=== PATIENT | female | born 1985 | race Hispanic/Latino ===

== ENCOUNTER 2024-05-05 17:46 | Emergency (ER) | payer SELFPAY ==
[2024-05-05] MEDS ORDERED: ONDANSETRON 4 MG/2 ML VIAL ONE (18:32)
[2024-05-05] MEDS ORDERED: FAMOTIDINE 20 MG/2 ML VIAL IV ONE (18:33)
[2024-05-05] MEDS ORDERED: NA CHLORIDE 0.9% 1,000 ML ONE (18:33)
[2024-05-05 18:35] LABS: Absolute Basophils 0.1 K/uL (0-0.5); Absolute Eosinophils 0.1 K/uL (0-0.5); Absolute Lymphocytes (CBC) 2.9 K/uL (0.7-4.9); Absolute Monocytes 0.4 K/uL (0.1-1.3); Absolute Neutrophil 7.7 K/uL (1.8-8.0); Basophils % 0.7 % (0-1.3); Eosinophils % 0.7 % (0-4.4); Hematocrit 36.6 % (36.0-45.0); Hemoglobin 12.4 g/dL (12.0-15.0); Lymphocytes % 25.8 % (15.3-44.8); MCH 29.2 pg (27.0-35.0); MCV 85.8 fL (80-100); MPV 8.3 fL (7.6-11.3); Monocytes % 3.5 % (3.3-12.3); Neutrophils % 69.3 % (41.7-73.7); Platelets 284 thou/uL (152-406); RBC Red Blood Cell Count 4.26 M/uL (3.86-4.86); Red Cell Distribution Width 13.1 % (12.1-15.2)
[2024-05-05 18:52] LABS: Albumin 3.7 g/dL (3.4-5.0); Albumin/Globulin Ratio 0.9 (1.1-1.8); Anion Gap 11.4 mEq/L (5.0-15.0); Bilirubin Total 0.3 mg/dL (0.2-1.0); Globulin 4.2 g/dL (2.3-3.5); Potassium 3.4 mEq/L (3.5-5.1); Protein, Total 7.9 g/dL (6.4-8.2)
[2024-05-05 19:00] LABS: Specific Gravity 1.005 (1.005-1.030)
[2024-05-05 19:08] LABS: SARS-CoV-2 Antigen CONTROL BLUE LINE VIS/BG OK; SARS-CoV-2 Antigen Rapid Res Negative (Negative)
--- NOTE | 2024-05-05 19:54 | RAD REPORT ---
EXAMINATION: CT ABDOMEN AND PELVIS WITH CONTRAST CLINICAL INDICATION: n/v;Abd pain TECHNIQUE: CT abdomen and pelvis was performed, after the administration of IV contrast, [facility]. Axial, sagittal and coronal reconstructions were obtained. One or more of the following dose reduction techniques were used: Automated exposure control, adjustment of the mA and k V according to patient size, and iterative reconstruction. Unless otherwise specified, incidental findings do not require dedicated imaging follow-up. COMPARISON: No prior exam. FINDINGS: LOWER CHEST: The visualized lung bases are clear. Small hiatal hernia. LIVER: Normal in size and contour. Small low-density lesion right hepatic lobe measuring 4 mm likely benign.. Grossly unremarkable gallbladder. SPLEEN: Normal size. No focal lesion. PANCREAS: No mass, ductal dilation, or herbert-pancreatic fluid. ADRENALS: Normal; no mass. KIDNEYS: Normal size and contour. No hydronephrosis. GASTROINTESTINAL TRACT: No evidence of free air, significant intra-abdominal free fluid, bowel obstru ction or abscess. APPENDIX: Normal appendix. LYMPH NODES: No lymphadenopathy. MUSCULOSKELETAL: No acute or suspicious osseous abnormality. ADDITIONAL FINDINGS: Trace pelvic free fluid. IMPRESSION: No acute or concerning abnormalities seen in the abdomen or pelvis. Trace indeterminate pelvic free fluid, often physiologic in premenopausal females.
[2024-05-05 21:36] LABS: Sqamous Epithelial <5 /HPF (None Seen); Urine Bacteria None Seen /HPF (<20); Urine Culture Reflex Order NOT NEEDED; Urine Microscopic Reflex YN ORDER UMIC; Urine Mucus Slight /HPF (None Seen); Urine RBC <5 /HPF (None Seen); Urine WBC <5 /HPF (<5)
[2024-05-05 21:37] LABS: Specific Gravity > 1.030 (1.005-1.030); Urine Bilirubin Negative (Negative); Urine Clarity Clear (Clear); Urine Color Colorless (Yellow); Urine Glucose Negative (Negative); Urine Ketones 1+ (Negative)
[2024-05-05 21:38] LABS: Urine Blood Negative (Negative); Urine Nitrite Negative (Negative); Urine Protein Negative (Negative); Urine Urobilinogen Normal (Normal)
--- NOTE | 2024-05-05 21:55 | EDPHYS ---
Physician Documentation [facility] Name: Ana Cristina Ibarra Age: 38 yrs Sex: Female : 1985 Arrival Date: 05/05/2024 Time: 17:46 Bed 20 Private MD: ED Physician Pete Noland HPI: 05/06 00:19 This 38 yrs old Female presents to ER via Ambulatory with complaints of sb4 Vomiting, Heartburn, Headache. 00:31 nausea and vomiting x 2 hours. reports burning in the throat. no diarrhea. unsure if sb4 or not. denies any abdominal pain. does not think she ate anything bad. denies any sick contacts. denies URI symptoms. denies chest pain or sob. 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 - Infectious Disease History:: Denies. - Social history:: Smoking status: Patient denies any tobacco usage or history of. ROS: 05/06 00:31 Constitutional: Negative for fever, chills, and weight loss, sb4 Abdomen/GI: Positive for nausea and vomiting, All other systems are negative, Exam: 00:31 Head/Face: Normocephalic, atraumatic. Eyes: Extra-ocular motions intact. Periorbital sb4 areas with no swelling, redness, or edema. ENT: Mucous membranes moist. Cardiovascular: Regular rate and rhythm with a normal S1 and S2. Respiratory: No increased work of breathing, no retractions or nasal flaring. Abdomen/GI: Soft, non-tender, no distension. Skin: Warm, dry with normal turgor. Normal color with no rashes, no lesions, and no evidence of cellulitis. MS/ Extremity: Pulses equal, no cyanosis. Neurovascular intact. Full, normal range of motion. 00:31 Constitutional: The patient appears alert, awake, uncomfortable, Vital Signs: 05/05 17:53 BP 126 / 65; Pulse 67; Resp 17; Temp 98.6; Pulse Ox 100% ; me1 19:00 BP 114 / 56; Pulse 79; Resp 16; Pulse Ox 100% ; me1 20:00 BP 114 / 57; Pulse 73; Resp 15; Pulse Ox 100% ; me1 21:00 BP 108 / 51; Pulse 72; Resp 15; Pulse Ox 99% ; me1 22:00 BP 108 / 55; Pulse 68; Resp 16; Temp 98.4; Pulse Ox 99% ; me1 MDM: 17:53 Medical Screening Exam initiated sb4 05/06 00:31 Data reviewed: vital signs, nurses notes, lab test result(s), radiologic studies, and sb4 as a result, I will discharge patient. Counseling: I had a detailed discussion with the patient and/or guardian regarding the historical points, exam findings, and any diagnostic results supporting the discharge/admit diagnosis, lab results, radiology results, the need for outpatient follow up, for definitive care, to return to the emergency department if symptoms worsen or persist or if there are any questions or concerns that arise at home. 05/05 18:16 Order name: CBC with Diff; Complete Time: 18:36 sb4 05/05 18:16 Order name: CMP; Complete Time: 18:52 sb4 05/05 18:16 Order name: Lipase; Complete Time: 18:52 sb4 05/05 18:16 Order name: Test, Urine; Complete Time: 19:01 sb4 05/05 18:16 Order name: Urinalysis w/ reflexes; Complete Time: 21:39 sb4 05/05 18:16 Order name: SARS RAPID; Complete Time: 19:15 sb4 05/05 18:16 Order name: Flu; Complete Time: 19:16 sb4 05/05 19:17 Order name: CT Abd/Pelvis - IV Contrast Only; Complete Time: 19:54 sb4 05/05 18:16 Order name: IV Saline Lock; Complete Time: 18:33 sb4 05/05 18:16 Order name: Labs collected and sent; Complete Time: 18:33 sb4 05/05 20:01 Order name: PO challenge; Complete Time: 20:11 sb4 Administered Medications: 05/05 18:55 Drug: Famotidine IVP 20 mg IVP once; dilute with 10 mL 0.9% NaCl; give over 2 minutes me1 Route: IVP; Site: right antecubital; 22:10 Follow up: Response: No adverse reaction me1 18:55 Drug: Ondansetron IVP 4 mg IVP once; over 2 minutes Route: IVP; Site: right antecubital;me1 22:10 Follow up: Response: No adverse reaction; Nausea is decreased me1 18:55 Drug: NS 0.9% IV 1000 ml IV at 1 bolus Per protocol; to be given as a bolus over 60 me1 minutes Route: IV; Rate: 1 bolus; Site: right antecubital; 22:10 Follow up: Response: No adverse reaction; IV Status: Completed infusion; IV Intake: me1 1000ml Disposition Summary: 05/05/24 21:54 Discharge Ordered Notes: Location: Home sb4 Problem: new sb4 Symptoms: have improved sb4 Condition: Stable sb4 Diagnosis - Nausea with vomiting, unspecified sb4 Followup: sb4 - With: Private Physician - When: As needed - Reason: Recheck today's complaints, Re-evaluation by your physician Discharge Instructions: - Discharge Summary Sheet sb4 - Nausea and Vomiting, Adult sb4 - Viral Gastroenteritis, Adult, [id number] sb4 Forms: - Patient Portal Instructions sb4 - Leadership Thank You Letter sb4 Prescriptions: - Pepcid 20 mg Oral Tablet - take 1 tablet ORAL route every 12 hours for 5 days; 10 tablet; Refills: 0, sb4 Product Selection Permitted - dicyclomine 10 mg Oral capsule - take 1 capsule ORAL route 3 times per day; 12 capsule; Refills: 0, Product sb4 Selection Permitted - ondansetron 8 mg Oral Tablet,disintegrating - take 1 tablet ORAL route every 8 hours; 10 tablet; Refills: 0, Product sb4 Selection Permitted Addendum: 05/10/2024 15:31 Co-signature as Attending Physician, Pete Noland MD I agree with the assessment and c weston plan of care. Signatures: Dispatcher [employer] Pete Salazar MD MD cha Brown, Sophia PATawanaC PATawanaC sb4 Renetta Arechiga, RN RN me1 Corrections: (The following items were deleted from the chart) 05/05 22:05 22:04 PSHx: Unable to Obtain; me1 me1
--- NOTE | 2024-05-05 21:55 | ER ---
Nurse's Notes [facility] Name: Ana Cristina Ibarra Age: 38 yrs Sex: Female : 1985 Arrival Date: 05/05/2024 Time: 17:46 Bed 20 Private MD: Diagnosis: Nausea with vomiting, unspecified Presentation: 05/05 17:53 Chief complaint: Patient states: with use of coat baster: n/v that started at 4 pm and me1 now patient has severe burning from her stomach up her esophagus. c/o headache as well. Coronavirus screen: Vaccine status: Patient reports being unvaccinated. Ebola Screen: No symptoms or risks identified at this time. Initial Sepsis Screen: Does the patient meet any 2 criteria? No. Patient's initial sepsis screen is negative. Does the patient have a suspected source of infection? No. Patient's initial sepsis screen is negative. Risk Assessment: Do you want to hurt yourself or someone else? Patient reports no desire to harm self or others. Onset of symptoms was May 05, 2024 at 16:00. 17:53 Method Of Arrival: Ambulatory la1 17:53 Acuity: [place] 3 me1 Triage Assessment: 17:53 General: Appears uncomfortable, ill, well groomed, well developed, well nourished, me1 Behavior is cooperative, appropriate for age, anxious, Reports n/v since 4 pm with severe heartburn and headache. Pain: Complains of pain in mid-sternal area Pain radiates to neck Pain currently is 10 out of 10 on a pain scale. Quality of pain is described as burning, Pain began suddenly, Is continuous. 17:53 EENT: No signs and/or symptoms were reported regarding the EENT system. Neuro: Level of me1 Consciousness is awake, alert, obeys commands, Oriented to person, place, time, situation, Appropriate for age Reports headache. Cardiovascular: Patient's skin is warm and dry. Respiratory: Airway is patent Trachea midline Respiratory effort is even, unlabored, Respiratory pattern is regular, symmetrical. GI: Reports indigestion, nausea, vomiting, since 4 pm. : No signs and/or symptoms were reported regarding the genitourinary system. Derm: Skin is intact, is healthy with good turgor, Skin is pink, warm \T\ dry. Musculoskeletal: No signs and/or symptoms reported regarding the musculoskeletal system. 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 - Infectious Disease History:: Denies. - Social history:: Smoking status: Patient denies any tobacco usage or history of. Screenin:53 [facility] ED Fall Risk Assessment (Adult) History of falling in the last 3 months, me1 including since admission No falls in past 3 months (0 pts) Confusion or Disorientation No (0 pts) Intoxicated or Sedated No (0 pts) Impaired Gait No (0 pts) Mobility Assist Device Used No (0 pt) Altered Elimination No (0 pt) Score/Fall Risk Level 0 - 2 = Low Risk Maintained a safe environment, Provided non-skid footwear, Hourly rounding (assess needs \T\ fall precautionary measures) done. Abuse screen: Denies threats or abuse. Nutritional screening: No deficits noted. Tuberculosis screening: No symptoms or risk factors identified. Assessment: 17:53 General: See triage assessment.. GI: Reports indigestion, nausea, vomiting. me1 Vital Signs: 17:53 BP 126 / 65; Pulse 67; Resp 17; Temp 98.6; Pulse Ox 100% ; me1 19:00 BP 114 / 56; Pulse 79; Resp 16; Pulse Ox 100% ; me1 20:00 BP 114 / 57; Pulse 73; Resp 15; Pulse Ox 100% ; me1 21:00 BP 108 / 51; Pulse 72; Resp 15; Pulse Ox 99% ; me1 22:00 BP 108 / 55; Pulse 68; Resp 16; Temp 98.4; Pulse Ox 99% ; me1 ED Course: 17:47 Patient arrived in ED. im 17:53 Lisseth Barbour PA-C is PHCP. sb4 17:53 Pete Noland MD is Attending Physician. sb4 17:53 No provider procedures requiring assistance completed. me1 17:53 Arm band placed on Patient placed in an exam room. me1 17:53 Patient has correct armband on for positive identification. Bed in low position. Call me1 light in reach. Side rails up X2. Provided Education on: POC. Verbalized understanding.. Client placed on continuous cardiac and pulse oximetry monitoring. NIBP monitoring applied. Pulse ox on. NIBP on. 18:02 Renetta Arechiga, RN is Primary Nurse. me1 18:26 Initial lab(s) drawn, by me, sent to lab. Inserted saline lock: 22 gauge in right me1 antecubital area, using aseptic technique. 18:34 CBC with Diff Sent. me1 18:34 CMP Sent. me1 18:34 Lipase Sent. me1 18:34 Flu Sent. me1 18:34 SARS RAPID Sent. me1 18:34 COVID swab sent to lab. Flu and/or RSV swab sent to lab. me1 18:55 Test, Urine Sent. me1 19:48 CT Abd/Pelvis - IV Contrast Only In Process Unspecified. EDMS 22:04 Triage completed. me1 22:16 IV discontinued, intact, bleeding controlled, No redness/swelling at site. Pressure me1 dressing applied. Administered Medications: 18:55 Drug: Famotidine IVP 20 mg IVP once; dilute with 10 mL 0.9% NaCl; give over 2 minutes me1 Route: IVP; Site: right antecubital; 22:10 Follow up: Response: No adverse reaction me1 18:55 Drug: Ondansetron IVP 4 mg IVP once; over 2 minutes Route: IVP; Site: right antecubital;me1 22:10 Follow up: Response: No adverse reaction; Nausea is decreased me1 18:55 Drug: NS 0.9% IV 1000 ml IV at 1 bolus Per protocol; to be given as a bolus over 60 me1 minutes Route: IV; Rate: 1 bolus; Site: right antecubital; 22:10 Follow up: Response: No adverse reaction; IV Status: Completed infusion; IV Intake: me1 1000ml Medication: 17:53 VIS not applicable for this client. me1 Intake: 22:10 IV: 1000ml; Total: 1000ml. me1 Outcome: 21:54 Discharge ordered by . sb4 22:16 Discharged to home ambulatory, with significant other, me1 22:16 Condition: stable 22:16 Discharge instructions given to patient, significant other, Instructed on discharge instructions, follow up and referral plans. medication usage, Demonstrated understanding of instructions, follow-up care, medications, Prescriptions given X 3, 22:17 Patient left the ED. me1 Signatures: Dispatcher [employer] Lisseth Gamino PA-C PA-C sb4 Jayna Kearns Michelle, RN RN me1 Corrections: (The following items were deleted from the chart) 22:05 22:04 PSHx: Unable to Obtain; me1 me1 22: 22:04 Pain: Complains of pain in mid-sternal area Pain radiates to neck Pain currently me1 is 10 out of 10 on a pain scale. Quality of pain is described as burning, Pain began suddenly, Is continuous, me1 : 22:04 General: Appears uncomfortable, ill, well groomed, well developed, well me1 nourished, Behavior is cooperative, appropriate for age, anxious, Reports n/v since 4 pm with severe heartburn and headache me1
[2024-05-06 05:28] VITALS: O2SAT 99
[2024-05-06 05:30] VITALS: BP 108/55; TEMP 98.4
== END 2024-05-05 22:17 | disposition home or self-care (01) ==
LOC: ER 17:46
DX: R11.2 Nausea with vomiting, unspecified (principal); Z11.52 Encounter for screening for COVID-19
CPT/HCPCS: 36415; 74177; 80053; 81001; 81025; 83690; 85025; 87804; 87811; 96361; 96374; 96375; 99284; J2405; J7030; Q9967